=== PATIENT | male | born 1960 | race Caucasian/White ===

== ENCOUNTER → 2022-01-27 | Outpatient (CLI) | payer MEDICARE ==
[2022-01-27 14:53] LABS: HCT 47.6 % (39.6-50.0); HGB 16.1 g/dL (13.0-17.0); MCH 33.1 pg (27.0-32.0); MCHC 33.8 g/dL (32.0-37.0); MCV 97.7 fL (80.0-97.0); Mean Platelet Volume 10.3 fL (9.5-12.2); NRBC Per 100 WBC 0 /100 WBCS (0.0-0.0); Platelet Count 186 X 10*3/uL (140-440); RBC 4.87 X 10*6/uL (4.40-5.60); RDW 12.5 % (11.5-14.5); WBC 5.59 X 10*3/uL (4.50-10.00)
[2022-01-27 15:35] LABS: ALT 27 U/L (10-49); AST 17 U/L (14-35); African American GFR (CKD) 94.4 (60.0-200.0); Albumin 4.3 g/dL (3.8-4.9); Albumin/Globulin Ratio 2.26 (1.60-3.17); Alkaline Phosphatase 63 U/L (41-126); Carbon Dioxide 25.6 mmol/L (20.0-27.5); Chloride 108 mmol/L (96-109); Chol/HDL Ratio 4.54 Ratio; Creatine Kinase 101 U/L (35-257); Globulin 1.9 g/dL (1.6-3.3); Glucose 104 mg/dL (70-110); Iron 134 ug/dL (65-175); LDL Cholesterol,Calculated 136.9 mg/dL (0.0-131.0); Non-African American GFR(CKD) 81.4 (60.0-200.0); Potassium 4.3 mmol/L (3.5-5.5); Sodium 142 mmol/L (135-145); Total Protein 6.2 g/dL (6.2-8.2)
[2022-01-27 16:50] LABS: Appearance,Urine Clear (Clear); Bilirubin,Urine Negative (Negative); Blood,Urine Negative (Negative); Color,Urine Yellow (Yellow); Ketones,Urine Negative (Negative); Nitrite,Urine Negative (Negative); Specific Gravity,Urine 1.021 (1.001-1.030); Urobilinogen,Urine 0.2 (0.2,1.0)
== END | disposition home or self-care (01) ==
LOC: LABWHC1 08:39
PROVIDERS: ATTEND Internal Medicine
DX: Z01.83 Encounter for blood typing (principal)
CPT/HCPCS: 86900; 86901; 80061; 80053; 82607; 82728; 82550; 82746; 83540; 84443; 85027; 81003; 84270; 82040; 84403; 84466; 82306; 36415; G0103

== ENCOUNTER → 2022-02-15 | Outpatient (CLI) | payer MEDICARE ==
--- NOTE | 2022-02-15 20:58 | CT ---
EXAMINATION TYPE: CT chest wo con DATE OF EXAM: 02/15/2022 INDICATION: Dyspnea on exertion. CT DLP: 565.4 mGy.cm Automated Exposure Control for Dose Reduction was Utilized. TECHNIQUE AND CONTRAST: CT scan of the chest without IV contrast administration. COMPARISON: CT dated 11/16/2012 FINDINGS: Unremarkable lung. No definite lung lesion or nodule. Patent central airways. No pleural or pericardi al effusion. No gross cardiomegaly. The ascending aorta measures 4.2 cm. The pulmonary trunk measures 3.2 cm. No pathologically enlarged lymph nodes in the chest. Unremarkable upper abdomen. Lower anterior cervi aliza spinal fixation. Bilateral chronic healed clavicular fractures. IMPRESSION: No significant pulmonary abnormality identified. Incidental findings as described above.
== END | disposition home or self-care (01) ==
LOC: RADCTMAIN 02-01 18:31
PROVIDERS: ATTEND Internal Medicine
DX: R06.09 Other forms of dyspnea (principal)
CPT/HCPCS: 71250

== ENCOUNTER → 2022-09-05 | Outpatient (CLI) | payer MEDICARE ==
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
== END | disposition home or self-care (01) ==
LOC: RADXRMAIN 11:17
DX: M50.323 Other cervical disc degeneration at C6-C7 level (principal); M43.22 Fusion of spine, cervical region; M46.02 Spinal enthesopathy, cervical region
CPT/HCPCS: 72040

== ENCOUNTER → 2022-11-21 | Outpatient (CLI) | payer MEDICARE ==
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
== END | disposition home or self-care (01) ==
LOC: RADXRMAIN 11:17
PROVIDERS: ATTEND Physician Assistant Surgical
DX: M48.02 Spinal stenosis, cervical region (principal)
CPT/HCPCS: 72040

== ENCOUNTER 2024-09-10 13:12 | Emergency (ER) | payer OTHER, MEDICARE ==
[2024-09-10 13:16] VITALS: RESP 18
[2024-09-10] MEDS: HYDROmorphone 0.5 MG/0.5 ML SYRINGE IM STA (13:24)
[2024-09-10] MEDS: KETOROLAC 15 MG/ML 1 ML VIAL IM STA (13:25)
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
[2024-09-10] MEDS: ACET/COD 300 MG/30 MG STARTER PACK 6 TAB BTL PO STA (15:08)
[2024-09-10 15:30] VITALS: BP 131/89; PULSE 80; TEMP 98
== END 2024-09-10 15:31 | disposition home or self-care (01) ==
LOC: EC 13:12
DX: S16.1XXA Strain of muscle, fascia and tendon at neck level, initial encounter (principal); S39.012A Strain of muscle, fascia and tendon of lower back, initial encounter; V29.99XA Rider (driver) (passenger) of other motorcycle injured in unspecified traffic accident, initial encounter; Y92.410 Unspecified street and highway as the place of occurrence of the external cause
CPT/HCPCS: 72072; 72110; 72125; 99284; 96372 ×2; J1885; J1171

== ENCOUNTER → 2025-01-04 | Outpatient (CLI) | payer MEDICARE, OTHER ==
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
== END | disposition home or self-care (01) ==
LOC: RADMRIMAIN 13:41
PROVIDERS: ATTEND Neurological Surgery
DX: M51.34 Other intervertebral disc degeneration, thoracic region (principal); M47.23 Other spondylosis with radiculopathy, cervicothoracic region
CPT/HCPCS: 72141; 72146